=== PATIENT | male | born 1960 | race Caucasian/White ===

== ENCOUNTER 2025-04-30 10:13 | Emergency (ER) | payer OTHER ==
[2025-04-30] MEDS ORDERED: HYDROCODONE/APAP 5/325 MG TAB ONE (11:40)
--- NOTE | 2025-04-30 11:59 | ER ---
Nurse's Notes [facility] Name: Yordan Rodriguez Age: 64 yrs Sex: Male : 1960 Arrival Date: 04/30/2025 Time: 10:13 Bed 16 Private MD: Diagnosis: Periprosthetic fracture left femur subtrochanteric Presentation: 04/30 10:36 Chief complaint: Patient states: Patient presents in the ED via EMS after a fall from os bed and hitting the left hip. Patient denies hitting head, LOC, positive for blood thinners. Coronavirus screen: Vaccine status: Client denies travel out of the [place] in the last 14 days. Ebola Screen: Patient denies exposure to infectious person. Patient denies travel to an Ebola-affected area in the 21 days before illness onset. No symptoms or risks identified at this time. Initial Sepsis Screen: Does the patient meet any 2 criteria? No. Patient's initial sepsis screen is negative. Does the patient have a suspected source of infection? No. Patient's initial sepsis screen is negative. Risk Assessment: Do you want to hurt yourself or someone else? Patient reports no desire to harm self or others. Risk Assessment: Do you want to hurt yourself or someone else? Patient reports no desire to harm self or others. Onset of symptoms was April 30, 2025. 10:36 Method Of Arrival: EMS: [facility] os 10:36 Acuity: STEVE 3 os Triage Assessment: 10:40 General: Appears uncomfortable, well groomed, well developed, Behavior is calm, os cooperative, appropriate for age. Pain: Complains of pain in left iliac crest and left hip Pain currently is 6 out of 10 on a pain scale. Neuro: No deficits noted. Cardiovascular: No deficits noted. Respiratory: No deficits noted. Musculoskeletal: Reports Pain is 6 out of 10 on a pain scale. Historical: - Allergies: 10:39 PENICILLINS; os - PMHx: 10:39 Cirrhosis; os - Immunization history:: Adult Immunizations up to date, . - Infectious Disease History:: Denies. - Social history:: Smoking status: Patient/guardian denies using tobacco. Screenin:30 [facility] ED Fall Risk Assessment (Adult) History of falling in the last 3 months, os including since admission Yes- single mechanical fall (1 pt) Confusion or Disorientation No (0 pts) Intoxicated or Sedated No (0 pts) Impaired Gait Yes (1 pt) Mobility Assist Device Used Yes (1 pt) Altered Elimination No (0 pt) Score/Fall Risk Level 3 or more points = High Risk Oriented to surroundings, Maintained a safe environment, Educated pt \T\ family on fall prevention, incl call for assistance when getting out of bed. Abuse screen: Denies threats or abuse. Denies injuries from another. Nutritional screening: No deficits noted. Tuberculosis screening: No symptoms or risk factors identified. Assessment: 14:22 Reassessment: Patient appears in no apparent distress at this time. No changes from os previously documented assessment. Vital Signs: 10:36 BP 136 / 72; Pulse 60; Resp 17; Temp 97.7; Pulse Ox 100% on R/A; Weight 106.59 kg; os 14:22 BP 166 / 92; Pulse 88; Resp 17; Temp 97.9(O); Pulse Ox 98% ; os ED Course: 10:35 Patient arrived in ED. eb 10:35 Yecenia Joseph MD is Attending Physician. sp3 10:39 Triage completed. os 11:44 XRAY Hip LEFT 2 view In Process Unspecified. EDMS 11:44 XRAY Knee LEFT 2 view In Process Unspecified. EDMS 12:53 Inserted saline lock: 18 gauge in left antecubital area, using aseptic technique. ts3 Flushed with 10 mL NS. 13:05 initiated a transfer with Jeremias from the [facility]. eb 13:12 Initial lab(s) drawn, by [employer] conservation laborer, sent to lab. ts3 13:20 connected the ortho airway traffic controller for [facility] with Dr. Joseph for patient transfer eb consultation. 13:37 connected the hospitalist airway traffic controller for [facility] with Dr. Joseph for patient eb transfer consultation. 14:04 administrative approval given by Jeremias Thompson/ patient has been accepted to [facility] room 1663/ Dr. Sahwn Pacheco has accepted the patient in transfer/ report to be called to [phone]. 14:31 No provider procedures requiring assistance completed. Patient did not have IV access os during this emergency room visit. 14:31 Arm band placed on right wrist. os 15:04 Patient has correct armband on for positive identification. Bed in low position. Call os light in reach. Side rails up X2. Provided Education on: Patient transferred to [facility] 381. Administered Medications: 11:42 Drug: HYDROcodone-acetaminophen PO 5 mg-325 mg 2 tabs PO once Route: PO; os 13:38 Drug: morphine IVP or IV 4 mg IVP once over 4 mins Route: IVP; Infused Over: 4 mins; os Site: left antecubital; 13:38 Drug: Ondansetron IVP 4 mg IVP once; over 2 minutes Route: IVP; Site: left antecubital; os Medication: 15:12 VIS not applicable for this client. os Outcome: 11:58 Discharge ordered by MD. bunch 12:31 ER care complete, transfer ordered by MD. bunch 15:01 Discharged to home ambulatory, os 15:01 Transferred by ground EMS to [facility] [place] 15:01 Condition: stable 15:13 Patient left the ED. os Signatures: Dispatcher [employer] EDMS Anita Davis Setul, MD MD sp3 Jatin Albarado, RN RN os Catalina Ford ts3
--- NOTE | 2025-04-30 11:59 | EDPHYS ---
Physician Documentation [facility] Name: Yordan Rodriguez Age: 64 yrs Sex: Male : 1960 Arrival Date: 04/30/2025 Time: 10:13 Bed 16 Private MD: ED Physician Yecenia Joseph HPI: 04/30 10:36 This 64 yrs old Male presents to ER via Unassigned with unknown complaint. sp3 10:51 64-year-old male with history of cirrhosis, on Eliquis who presents with mechanical sp3 fall out of his bed injuring his left hip and left knee both of which have had replacements. Replacements were greater than 5 years ago. Patient complains of left hip and left knee pain. ROS negative for medical prodrome prior to the fall.. Historical: - Allergies: 10:39 PENICILLINS; os - PMHx: 10:39 Cirrhosis; os - Immunization history:: Adult Immunizations up to date, . - Infectious Disease History:: Denies. - Social history:: Smoking status: Patient/guardian denies using tobacco. ROS: 10:49 Constitutional: Negative for fever, chills, and weight loss, Eyes: Negative for injury, sp3 pain, redness, and discharge, ENT: Negative for injury, pain, and discharge, Neck: Negative for injury, pain, and swelling, Cardiovascular: Negative for chest pain, palpitations, and edema, Respiratory: Negative for shortness of breath, cough, wheezing, and pleuritic chest pain, Abdomen/GI: Negative for abdominal pain, nausea, vomiting, diarrhea, and constipation, Back: Negative for injury and pain, Skin: Negative for injury, rash, and discoloration, Neuro: Negative for headache, weakness, numbness, tingling, and seizure, Psych: Negative for depression, anxiety, suicide ideation, homicidal ideation, and hallucinations, Allergy/Immunology: Negative for hives, rash, and allergies, Endocrine: Negative for neck swelling, polydipsia, polyuria, polyphagia, and marked weight changes, 10:49 All other systems are negative, Exam: 10:50 Constitutional: This is a well developed, well nourished patient who is awake, alert, sp3 and in no acute distress. Head/Face: Normocephalic, atraumatic. Eyes: Pupils equal round and reactive to light, extra-ocular motions intact. Lids and lashes normal. Conjunctiva and sclera are non-icteric and not injected. Cornea within normal limits. Periorbital areas with no swelling, redness, or edema. ENT: Nares patent. No nasal discharge, no septal abnormalities noted. External auditory canals are clear. Oropharynx with no redness, swelling, or masses, exudates, or evidence of obstruction, uvula midline. Mucous membranes moist. Neck: Trachea midline, no thyromegaly or masses palpated, and no cervical lymphadenopathy. Supple, full range of motion without nuchal rigidity, or vertebral point tenderness. No Meningismus. Chest/axilla: Normal chest wall appearance and motion. Nontender with no deformity. No lesions are appreciated. Cardiovascular: Regular rate and rhythm with a normal S1 and S2. No gallops, murmurs, or rubs. Normal PMI, no JVD. No pulse deficits. Respiratory: Lungs have equal breath sounds bilaterally, clear to auscultation and percussion. No rales, rhonchi or wheezes noted. No increased work of breathing, no retractions or nasal flaring. Abdomen/GI: Soft, non-tender, with normal bowel sounds. No distension or tympany. No guarding or rebound. No evidence of tenderness throughout. Skin: Warm, dry with normal turgor. Normal color with no rashes, no lesions, and no evidence of cellulitis. Neuro: Awake and alert, GCS 15, oriented to person, place, time, and situation. Cranial nerves II-XII grossly intact. Motor strength 5/5 in all extremities. Sensory grossly intact. Cerebellar exam normal. Normal gait. Psych: Awake, alert, with orientation to person, place and time. Behavior, mood, and affect are within normal limits. 10:50 Musculoskeletal/extremity: Patient with pain to palpation lateral left hip and lateral left knee. No dislocation clinically. Distal neurovascular exam is normal. Normal DP pulse noted. No drawer laxity on the knee.. Vital Signs: 10:36 BP 136 / 72; Pulse 60; Resp 17; Temp 97.7; Pulse Ox 100% on R/A; Weight 106.59 kg; os 14:22 BP 166 / 92; Pulse 88; Resp 17; Temp 97.9(O); Pulse Ox 98% ; os MDM: 10:35 Medical Screening Exam initiated sp3 10:52 Data reviewed: vital signs, nurses notes, radiologic studies. ED course: 64-year-old sp3 male with mechanical fall injuring left knee and left hip. We will obtain x-rays of both p.o. pain medication. I am not highly suspicious of dislocation or fracture.. 11:57 ED course: Radiology read of imaging demonstrates subtrochanteric fracture oblique in sp3 nature. We will consult with our orthopedist on whether to keep patient here or transfer.. 12:29 ED course: Discussed with Dr. Vora and symptom photo of x-ray. Due to 3 periprosthetic nature of the fracture, he [place] [facility]. We will initiate transfer to [facility] orthopedics.. 13:41 ED course: Discussed with orthopedics and internal medicine who accepted patient at 3 [facility].. 04/30 12:55 Order name: CBC with Diff; Complete Time: 13:37 sp3 04/30 12:55 Order name: CMP; Complete Time: 13:37 sp3 04/30 10:36 Order name: XRAY Hip LEFT 2 view; Complete Time: 12:13 sp3 04/30 10:36 Order name: XRAY Knee LEFT 2 view; Complete Time: 12:13 sp3 04/30 12:55 Order name: IV Saline Lock; Complete Time: 12:57 sp3 04/30 12:55 Order name: Labs collected and sent; Complete Time: 12:57 sp3 Administered Medications: 11:42 Drug: HYDROcodone-acetaminophen PO 5 mg-325 mg 2 tabs PO once Route: PO; os 13:38 Drug: morphine IVP or IV 4 mg IVP once over 4 mins Route: IVP; Infused Over: 4 mins; os Site: left antecubital; 13:38 Drug: Ondansetron IVP 4 mg IVP once; over 2 minutes Route: IVP; Site: left antecubital; os Disposition Summary: 04/30/25 12:31 Transfer Ordered Notes: Transfer Location: [facility] sp3 Reason: Higher level of care sp3 Condition: Stable(04/30/25 12:31) sp3 Problem: new sp3 Symptoms: are unchanged sp3 Accepting Physician: [facility](04/30/25 15:13) os Diagnosis - Periprosthetic fracture left femur subtrochanteric sp3 Discharge Instructions: - Discharge Summary Sheet iw Forms: - Family Work Release iw - Medication Reconciliation Form sp3 - SBAR form sp3 Signatures: Dispatcher [employer] EDMS Yecenia Joseph MD MD sp3 Jatin Albarado, RN RN os Corrections: (The following items were deleted from the chart) 10:36 10:36 Hip Left 2 View+RAD.RAD.BRZ ordered. EDMS EDMS 10:36 10:36 Knee Left 2 View+RAD.RAD.BRZ ordered. EDMS EDMS 12:16 11:58 Home sp3 sp3 12:16 11:58 Stable sp3 sp3 12:16 11:58 Left hip contusion, left knee contusion sp3 sp3 12:19 11:57 ED course: X-rays demonstrate no abnormality. All hardware in good shape. We will sp3 safely discharge patient home at this time.. sp3 15:13 12:31 [facility] orthopedics sp3 os
--- NOTE | 2025-04-30 12:09 | RAD REPORT ---
Exam:Hip Left 2 View HISTORY: Left hip pain FINDINGS: Left hip prosthesis in place. Mildly to moderately displaced oblique fracture subtrochanteric left femur extends 15 cm distally to involve the proximal femoral diaphysis. No dislocation
--- NOTE | 2025-04-30 12:11 | RAD REPORT ---
Exam:Knee Left 2 View HISTORY: Left knee pain FINDINGS: No fracture or dislocation seen Left knee prosthesis without evidence of loosening.
[2025-04-30 13:19] LABS: Absolute Lymphocytes (CBC) 0.6 K/uL (0.7-4.9); Hematocrit 41.3 % (39.6-49.0); Hemoglobin 13.4 g/dL (13.6-17.9); MCH 27.4 pg (27.0-35.0); MCHC 32.5 g/dL (32.0-36.0); MCV 84.5 fL (80-100); MPV 8.9 fL (7.6-11.3); Nucleated RBC Absolute Count 0.0 (0-0); Nucleated Red Blood Cells % 0.1 % (0-0); RBC Red Blood Cell Count 4.89 M/uL (4.33-5.43); White Blood Count 12.90 thou/uL (4.3-10.9)
[2025-04-30] MEDS ORDERED: ONDANSETRON 4 MG/2 ML VIAL ONE (13:32)
[2025-04-30] MEDS ORDERED: MORPHINE 4 MG/ML SYR ONE (13:32)
[2025-04-30 13:36] LABS: Potassium 3.8 mEq/L (3.5-5.1)
[2025-04-30 13:37] LABS: ALT/SGPT 27.0 U/L (16-61); AST/SGOT 21.0 U/L (15-37); Albumin 3.5 g/dL (3.4-5.0); Albumin/Globulin Ratio 1.2 (1.1-1.8); Alkaline Phosphatase 93.0 U/L (45-117); Anion Gap 8.8 mEq/L (5.0-15.0); BUN Blood Urea Nitrogen 14.0 mg/dL (7-18); Globulin 3.0 g/dL (2.3-3.5); Glucose Level 115.0 mg/dL (74-106)
[2025-04-30 16:06] VITALS: BP 166/92; TEMP 97.9; O2SAT 98
== END 2025-04-30 15:13 | disposition short-term general hospital (02) ==
LOC: ER 10:13
DX: S72.22XA Displaced subtrochanteric fracture of left femur, initial encounter for closed fracture (principal); M97.02XA Periprosthetic fracture around internal prosthetic left hip joint, initial encounter; W06.XXXA Fall from bed, initial encounter; Z96.642 Presence of left artificial hip joint; Z96.652 Presence of left artificial knee joint
CPT/HCPCS: 85025; 36415; 80053; 73502; 73560; 96375; 96374; 99285; J2405

== ENCOUNTER 2025-05-05 11:33 | Inpatient (IN) | payer OTHER ==
[2025-05-05 18:04] VITALS: BMI 30.2
[2025-05-05] MEDS ORDERED: ACETAMINOPHEN 325 MG TABLET PO PRN (18:09)
[2025-05-05 18:53] LABS: Urine Microscopic Reflex YN NO UMIC
[2025-05-05] MEDS: APIXABAN 5 MG TABLET PO SCH (21:08)
[2025-05-05] MEDS: MELATONIN 3 MG TABLET PO PRN (21:08)
[2025-05-05] MEDS: DOCUSATE NA/SENNA CONC 1 TAB PO PRN (21:09)
[2025-05-06 07:35] LABS: Absolute Lymphocytes (CBC) 0.7 K/uL (0.7-4.9); Hematocrit 22.2 % (39.6-49.0); Hemoglobin 7.5 g/dL (13.6-17.9); MCH 28.7 pg (27.0-35.0); MCHC 33.7 g/dL (32.0-36.0); MCV 85.2 fL (80-100); MPV 9.9 fL (7.6-11.3); Nucleated RBC Absolute Count 0.0 (0-0); Nucleated Red Blood Cells % 0.0 % (0-0); RBC Red Blood Cell Count 2.61 M/uL (4.33-5.43); White Blood Count 4.80 thou/uL (4.3-10.9)
[2025-05-06 07:54] LABS: Albumin 2.4 g/dL (3.4-5.0); Anion Gap 10.0 mEq/L (5.0-15.0); BUN Blood Urea Nitrogen 14.0 mg/dL (7-18); Glucose Level 111.0 mg/dL (74-106); Magnesium 1.7 mg/dL (1.6-2.4); Potassium 4.0 mEq/L (3.5-5.1); Prealbumin 6.4 mg/dL (20-40)
[2025-05-06] MEDS: GLUCOSAM/CHONDROI 500mg-400mg PO SCH (08:00)
[2025-05-06] MEDS: ZINC SULFATE 220 MG CAP PO SCH (08:00)
[2025-05-06] MEDS: MULTIVITAMIN TAB PO SCH (08:05)
[2025-05-06] MEDS: MAGNESIUM OXIDE 400 MG TAB PO SCH (08:05)
[2025-05-06] MEDS: POTASSIUM CL SA 10 MEQ TAB PO SCH (08:06)
[2025-05-06] MEDS: FUROSEMIDE 20 MG TABLET PO SCH (08:06)
[2025-05-06] MEDS: FERROUS SULFATE 325 MG TAB PO SCH (08:06)
[2025-05-06] MEDS: PANTOPRAZOLE 40MG TABLET PO SCH (08:06)
[2025-05-06] MEDS: TRAMADOL HCL 50 MG TAB PO PRN (08:08)
[2025-05-06 11:22] LABS: Differential Total Cells Count 100; Segmented Neutrophils 70 % (40-80)
[2025-05-06 11:24] LABS: Basophilic Stippling 2+; Blood Morphology Comment NOTED (NOT SEEN)
--- NOTE | 2025-05-06 13:45 | P.RH.PN ---
Estimated Length of Stay: 12 Expected Discharge Date: 05/18/25 Discharge Disposition Plan: Home Family Support: Yes Senior Living Goal: Mobility, Transfers, Self Care Vital Signs: Last Vital Signs Temp 98.2 F 05/06/25 07:07 Pulse 86 05/06/25 07:07 Resp 18 05/06/25 07:07 BP 118/55 L 05/06/25 07:07 Pulse Ox 97 05/06/25 07:07 Laboratory: Laboratory Last Values WBC 4.80 thou/uL (4.3-10.9) 05/06/25 07:00 RBC 2.61 M/uL (4.33-5.43) L 05/06/25 07:00 Hgb 7.5 g/dL (13.6-17.9) L 05/06/25 07:00 Hct 22.2 % (39.6-49.0) L 05/06/25 07:00 MCV 85.2 fL (80-100) 05/06/25 07:00 MCH 28.7 pg (27.0-35.0) 05/06/25 07:00 MCHC 33.7 g/dL (32.0-36.0) 05/06/25 07:00 RDW 16.3 % (12.1-15.2) H 05/06/25 07:00 Plt Count 79 thou/uL (152-406) L 05/06/25 07:00 MPV 9.9 fL (7.6-11.3) 05/06/25 07:00 Neutrophils % 65.8 % (41.7-73.7) 05/06/25 07:00 Lymphocytes % 15.4 % (15.3-44.8) 05/06/25 07:00 Monocytes % 16.6 % (3.3-12.3) H 05/06/25 07:00 Eosinophils % 1.6 % (0-4.4) 05/06/25 07:00 Basophils % 0.6 % (0-1.3) 05/06/25 07:00 Absolute Neutrophils 3.2 K/uL (1.8-8.0) 05/06/25 07:00 Segmented Neutrophils 70 % (40-80) 05/06/25 07:00 Absolute Lymphocytes 0.7 K/uL (0.7-4.9) 05/06/25 07:00 Lymphocytes 13 % (15-42) L 05/06/25 07:00 Monocytes 14 % (0-10) H 05/06/25 07:00 Absolute Monocytes 0.8 K/uL (0.1-1.3) 05/06/25 07:00 Eosinophils 2 % (0-3) 05/06/25 07:00 Absolute Eosinophils 0.1 K/uL (0-0.5) 05/06/25 07:00 Absolute Basophils 0.0 K/uL (0-0.5) 05/06/25 07:00 Promyelocytes 1 % (0-0) H 05/06/25 07:00 Platelet Estimate Adeq 05/06/25 07:00 Basophilic Stippling 2+ 05/06/25 07:00 Rouleaux Noted 05/06/25 07:00 Morphology Comment Noted (NOT SEEN) 05/06/25 07:00 Sodium 143 mEq/L (136-145) 05/06/25 07:00 Potassium 4.0 mEq/L (3.5-5.1) 05/06/25 07:00 Chloride 111 mEq/L (98-107) H 05/06/25 07:00 Carbon Dioxide 26 mEq/L (21-32) 05/06/25 07:00 Anion Gap 10.0 mEq/L (5.0-15.0) 05/06/25 07:00 BUN 14 mg/dL (7-18) 05/06/25 07:00 Creatinine 0.75 mg/dL (0.70-1.30) 05/06/25 07:00 Est GFR (CKD-EPI) 100 ml/min (=/>90) 05/06/25 07:00 Glucose 111 mg/dL (74-106) H 05/06/25 07:00 Calcium 7.8 mg/dL (8.5-10.1) L 05/06/25 07:00 Magnesium 1.7 mg/dL (1.6-2.4) 05/06/25 07:00 Albumin 2.4 g/dL (3.4-5.0) L 05/06/25 07:00 Prealbumin 6.4 mg/dL (20-40) L 05/06/25 07:00 Urine Color Yellow (Yellow) 05/05/25 18:30 Urine Clarity Clear (Clear) 05/05/25 18:30 Urine pH 7.0 (5.0-7.0) 05/05/25 18:30 Ur Specific [place] 1.024 (1.005-1.030) 05/05/25 18:30 Glucose (UA)(Auto) Negative (Negative) 05/05/25 18:30 Urine Ketones Negative (Negative) 05/05/25 18:30 Urine Blood Negative (Negative) 05/05/25 18: Urine Nitrite Negative (Negative) 05/05/25 18:30 Urine Bilirubin Negative (Negative) 05/05/25 18:30 Urine Urobilinogen 4+ (over) (Normal) H 05/05/25 18:30 Ur Leukocyte Esterase Negative Matthew/uL (Negative) 05/05/25 18: Urine Total Protein Negative (Negative) 05/05/25 18:30 Smear Scan Cancelled 05/06/25 07:00 Weight: 235 lb Physician Update: Labs reviewed and had moderate anemia Hgb 7.5, low calcium. Has orthostatic hypotension, 126/68 dropped 107/57 heart rate 110. Left periprosthetic fracture and surgical site site. Moderate left hip pain with decreased ranged of motion. He plans to live with his daughter after discharge. Max assist bed mobility, mod supine to sit. Min assist for taller surfaces. RW 325' without with min assist. Up and down 2 stairs with min assist. He had shoulder pain with stairs. Independent eating, min assist oral care, set up for upper body dressing. Min assist toilet transfers. Summary: Patient's care plan and fdc goals have been reviewed and revised as necessary. Please see the Rehabilitation Signature page for all necessary signatures.
[2025-05-06] MEDS: ALBUMIN HUMAN 25% 100 ML IV ONE (15:43)
[2025-05-06] MEDS: ENSURE MAX PROTEIN 330 ML LIQUID PO SCH (19:34)
[2025-05-06] MEDS: GABAPENTIN 100 MG CAP PO SCH (19:34)
[2025-05-06] MEDS: DOCUSATE NA/SENNA CONC 1 TAB PO PRN (19:40)
--- NOTE | 2025-05-07 02:25 | HP ---
Date of Admission: 05/05/2025 Time: 1 p.m. Chief Complaint: "I fell and broke my left hp." History Of Present Illness: Mr. Rodriguez is a 64-year-old patient, who has previously had a bilateral h ip replacement with knee replacement, who is doing well, independent at home, living with his family, who is very supportive, taking care of activities of daily living independently without any difficul ty. He could routinely play baseball with his grandson. He does have additionally history of atrial fibrillation, myalgias, and pacemaker placement in September 18, cirrhosis of the liver from a long h istory of heavy alcohol use. He did fall at home and again could fall. He had significant pain in t he left hip and imaging identified a left periprosthetic femur fracture. In hospital, he underwent a revision of left total hip arthroplasty with open reduction and internal fixation of the femur fract ure. Postoperatively, he had mild anemia and significantly low platelets requiring transfusion. His hemoglobin on the 04 of May was 7.5, and thrombocytopenia down to 73 at which point he received platelets. He does require ongoing monitoring for additional potential transfusion of red blood amita ls and platelets. Also, there is a history of hepatic stress following his hospitalization and requi res significant glucose monitoring. Postoperatively, he has been able to resume the Eliquis and to b e evaluated by therapy. However, he did have some orthostatic hypotension requiring IV fluids ____ tolerance. He was able to and began mobilization training. Functionally, requires m inimum assistance for bed mobility in addition to do passive transfer and ambulate about 7 feet with a rolling walker and moderate assistance. Did again have orthostatic hypotension. He is a touchdown weightbearing with a left lower extremity and has had 30% weightbearing per orthopedic surgeon. He does have some difficulty recalling all of his hip precautions. Given his medical history, which requires ongoing monitoring, weightbearing restrictions, orthostatic instability, decline in functional independence, he was found to be a good candidate for inpatient r ehabilitation. Rehabilitation inpatient is necessary, so that he can return to his prior level of fu nctioning and reduce risk during hospitalization. If he is to be discharged to [facility] home drive and potentially worsen and prolonged hospitalization. Past Medical History: As noted above. Past Surgical History: Right inguinal hernia addressed. He does have mild obesity with ascites and a retransplant evaluation for chronic liver disease, anemia, vitamin B12 deficiency, esophageal varic es, cirrhosis related to alcohol use. He had appendectomy, colonoscopy, herniorrhaphy, hernia repair in the inguinal region on the right side, left total knee replacement, right total hip arthroplasty, and fine-needle aspiration and ultrasound. Imaging: X-ray of the pelvis on 05/03 shows intraoperative study, where a right femoral arthroplasty was done. No unexpected findings. CT of the pelvis on 05/01, acute oblique fracture through the le ft proximal femur surrounding the left femoral component of a left hip arthroplasty. There is mild l ucency of the most proximal portion of the femoral component from an indeterminate cause. Allergies: PENICILLIN. Medications: Tylenol 650 mg every 4 hours as needed, Eliquis 5 mg twice daily, ferrous sulfate 325 m g daily, Lasix 20 mg daily, gabapentin 100 mg twice daily, glucosamine chondroitin 1 capsule daily, m agnesium oxide 400 mg daily, melatonin 3 mg at bedtime, Hemocyte Plus 1 tablet daily, Centrum Silver 1 tablet daily, Protonix 40 mg daily, potassium 10 mEq 2 daily, Ensure Max Protein 237 mL twice daily , 2 twice daily, Ultram 50 mg every 6 hours, and zinc sulfate 220 mg daily. Laboratory Studies: White blood cell count 4.8, hemoglobin 7.5, platelets 79. Sodium 143, potassium 4.0, chloride 111, carbon dioxide 26, BUN 14, creatinine 0.75, glucose 111, calcium 7.8, magnesium 1 .7, albumin 2.4, prealbumin 6.4. He will receive 25 g of albumin. Urinalysis shows 4+ urine urobili nogen, but is otherwise unremarkable. Family History: Noncontributory. Social History: Stopping alcohol about 10 years ago. Prior to that, drank heavily. No new drug use or ongoing tobacco use. Review of Systems: He does report pain around 5 to 6/10 in the left hip. Otherwise, some pain in his back, which perhap s is more, but little pain in the right hip and bilateral knees. Physical Examination: HEENT: Otherwise, he is normocephalic, atraumatic. Sclerae anicteric. Oropharynx is moist, pink. Neck: Supple. Chest: Clear. Heart: Regular. Extremities: No significant edema, cyanosis, or clubbing. Vital Signs: In terms of his vital signs, blood pressure 118/55, pulse 86, respiratory rate 16, temp erature 98.2, oxygen saturation 97%, and weight 235 pounds. Height 6 feet 2 inches. BMI 30.2. General: He is resting comfortably. Slight pain. Neuro: He is again with no focal neurological deficits. Current Level Of Functioning: Currently eating is independent, grooming supervision, bathing maximum assistance, upper body dressing moderate assistance, lower body dressing maximal assistance. Toilet ing, moderate assistance. Transferring from bed, chair, wheelchair moderate assistance. Toilet jean sfer moderate assistance with ambulation 7 feet at a moderate assistance level, wheelchair 10 feet at moderate assistance level. Rehab And Medical Assessment And Plan: Mr. Rodriguez is a 64-year-old patient with rehabilitation impair ment category 07, fracture of the lower extremity. His impairment group code is 08.11 unilateral hip fracture. Etiologic diagnosis, left periprosthetic femur fracture. His comorbid conditions; atrial fibrillation, on chronic anticoagulation, chronic liver disease, cirrhosis related to alcohol use, m arked anemia, and thrombocytopenia. Episodes of hyper and hypotension, chronic anemia, moderate pain in the left hip, mild constipation. His plan will be to have physical and occupational therapy 3 ho urs a day, 5 of 7 days. He will continue with his medications as noted, Eliquis for DVT prophylaxis, ferrous sulfate, Hemocyte Plus for his iron deficiency, glucosamine chondroitin for arthritic joint pain, magnesium oxide for muscle spasms, melatonin for insomnia, Protonix for GE reflux, potassium re placement on board, Ensure Max Protein for large protein malnutrition. He is also receiving albumin 25 g. Will have Senokot for constipation, tramadol for pain, zinc sulfate to help with immune functi on. Comorbid Conditions That Are Impacting His Rehabilitation: He does have significant thrombocytopenia and anemia and likely related to cirrhosis of the liver from alcohol use. He has pain medications, will include gabapentin 100 mg twice daily, and the use of narcotics and Tylenol related medications will be minimized. His protein level again addressed by adding albumin to his regimen along with the high protein supplements. His risk of bleeding is significant and he may require a transfusion as h is hemoglobin is currently 7 and platelets are low. However, those will be checked and the hemoglobi n approaches closer to 7 and received 1 unit of red blood cells. Rehab Specific Plan: Mr. Rodriguez will have physical and occupational therapy 3 hours a day, 5 of 7 day s to improve his ability to transfer from the bed to a chair, to a wheelchair, to rolling walker with toileting to shower and dress upper and lower body, donning and doffing footwear. vision therapist apy will help with his activities of daily living and if need be, Speech will help with safety awaren ess and communication processing and being able to maintain his touchdown weightbearing precautions w ith the left lower extremity. Mr. Rodriguez has a good understanding of the process of admission to the inpatient rehabilitation unit a nd how he will benefit from physical and occupational therapy. He will have 24 hours a day, 7 days a week skilled rehabilitation nursing, daily physician evaluation and management, and social science research assistant evaluation and management for discharge planning, home equipment, and to continue therapy after his d ischarge. If need be, the Hospitalist Service will be consulted. Prior to discharge and the possibility of bleeding given low platelets and hemoglobin and hematocrit, may have been extended stay, those have to be monitored on a daily basis. He does have a significan t risk of falling and injury, fall precautions related to it at all times. If there is any potential finding of falling that may extend the stay, he may have to go to a [facility]ci for an extended period. The goal is for him to return home and he has family support. Length Of Stay: About 14 days. Disposition: Expected to be home with family and continue therapy via Home Health. Prognosis: Good. Code Status: Full code. Rehab Specific Goals: 1. To become independent with upper and lower body dressing and donning and doffing footwear. 2. Independently mobilize a wheelchair 250 feet, a rolling walker 250 feet, and go up and down 10 dayton ps with bilateral hand rails. 3. Perform all cognitive functioning and safety awareness communication with independence. 4. Maintain his touchdown weightbearing status as he transfers and mobilizes as all activities of alfredito ly living. The above goals were reviewed with Mr. Rodriguez and he is in agreement. By signing this document, I acknowledge I have personally performed a full physical examination on Mr Tara Rodriguez no later than 24 hours after his admission to the inpatient rehabilitation unit and determine d that he is able to tolerate the above course of treatment at an intensive level for a reasonable pe riod of time. A detailed individualized plan of care for him will be completed by hospital day 4 bas ed on the preadmission screen, history and physical, and therapy evaluations. CLARICE Voice ID: [id number]
[2025-05-07] MEDS: FE SULF/FA/VIT B COMP & C TAB PO SCH (07:41)
[2025-05-09] MEDS: MIDODRINE HCL 5 MG TABLET PO SCH (10:45)
[2025-05-09] MEDS: GABAPENTIN 300 MG CAP PO SCH (19:52)
[2025-05-09] MEDS: TRAZODONE 50 MG TABLET PO PRN (22:07)
--- NOTE | 2025-05-09 22:51 | PN ---
Date of Progress Note: 05/09/2025 Time: 1:15 p.m. Subjective: Mr. Rodriguez is resting in bed between therapy sessions. Still complains that his lower ba ck pain is more than the pain in the left hip where he had a periprosthetic hip fracture there. He d oes have multiple modalities addressing the pain. He has pain patch on board, tramadol on board, and has gabapentin now increased with 300 mg twice daily from 100 mg twice daily. Review of Systems: As noted, back pain that moderate to severe. Does have episodes of hypotension, addressed with midod rine; some issues of sleep, bowel movements as well that is mildly problematic. Physical Examination: Vital Signs: Blood pressure 134/63, pulse 78, respiratory rate 18, temperature 97.6, oxygen saturati on 99%. General: Mr. Rodriguez is resting comfortably in bed, although in mild distress from pain. HEENT: He is normocephalic, atraumatic. Sclerae anicteric. Oropharynx pink and moist. Neck: Supple. Extremities: Left hip periprosthetic fracture site has good hemostasis. Laboratory Studies: No new laboratory studies. X-ray/imaging: No new x-rays or imaging. Medications: He has Eliquis 5 mg twice daily for DVT prophylaxis and stroke risk reduction, ferrous sulfate 325 mg daily, Lasix 20 mg daily, gabapentin 300 mg daily, glucosamine chondroitin capsule alfredito ly, magnesium oxide 400 mg daily, melatonin 3 mg at bedtime, midodrine 5 mg in the morning, Hemocyte Plus 1 tablet with breakfast, Centrum Silver 1 tablet daily, Protonix 40 mg daily, potassium 20 mEq d aily, Ensure Max Protein 237 mL twice daily, Senokot S 2 at bedtime, tramadol 50 mg every 6 hours as needed, trazodone 50 mg at bedtime, zinc sulfate 220 mg daily. Progress Made With Physical And Occupational Therapy: With physical therapy today, multiple sit-to-s tand transfers done with contact guard assistance, stand pivot transfers also with contact guard assi stance. Mobilized wheelchair 125 feet and 150 feet with standby assistance. With his occupational t herapy, he did wjmwrs-de-hie transfers with a leg raiser and litters with supervision. Propelled a w heelchair, to gym, to room with steady pace with supervision. Did knee extension exercises and flexi on exercises. He did ambulate a total of 200 feet with contact guard standby assistance using a roll ing walker. Did have some episodes of shortness of breath. Assessment And Plan: Mr. Rodriguez is a 64-year-old patient in rehabilitation unit with left periprosthe tic fracture. He has decreased mobility, decreased physical function, but is doing very well with th at regard. Protein malnutrition; significant back pain, which has been an issue impacting his rehabi litation. Multiple medication modalities were used to address that. He has Eliquis for stroke and deep venous thrombosis risk reduction given atrial fibrillation with rapid ventricular response. Marisa n will be to continue with physical and occupational therapy 3 hours a day, and his comorbid conditio n medications, which have been noted. NEMESIO/MODL Voice ID: [id number] Report ID: [id number]
--- NOTE | 2025-05-10 21:32 | PN ---
Date of Progress Note: 05/10/2025 Time: 1:15. Subjective: Mr. Rodriguez is doing well and mobilizing around the unit, feeling better about his progres s on the left periprosthetic fracture. Does have some lower back pain and has been addressed with mu ltiple modalities. Objective: Some back pain, some mild pain in the left lower extremity fracture sites, but it is not very significant. Physical Examination: Vital Signs: Blood pressure 100/64, pulse 94, respiratory rate 16, temperature 98.0, oxygen saturati on 97%. General: Mr. Rodriguez is resting comfortably in therapy, doing well. He is in no acute distress. HEENT: He is normocephalic, atraumatic. Sclerae anicteric. Oropharynx moist. Neck: Supple. Heart: Regular. Extremities: No edema or cyanosis. Laboratory Studies: No new laboratory studies. X-ray/imaging: No new x-rays or imaging. Medications: Have been reviewed and are unchanged. Progress Made With Physical And Occupational Therapy: With physical therapy today, he did perform robison pine-to-sit transfers with contact guard assistance with verbal cues, arq-tg-dexni transfers with sta ndby assistance, multiple apskt-oo-hnypo transfers with standby assistance. He did ambulate with a r olling walker 175 feet twice, with 150 feet with contact guard assistance and on wheelchair was mobil ized 125 feet twice with independence. With occupational therapy, supervision for mjk-yo-[id number] trans fers and shower transfers as well, propelled a wheelchair to . Assessment And Plan: Mr. Rodriguez is a 64-year-old patient in the rehabilitation unit with left peripro sthetic fracture of which he is doing well. He does have still some back pain but is managing to do fairly okay with the back pain with adjustment of medications, which he actually had today, midodrine to help with pressor support and he has tramadol for pain in addition to gabapentin of 300 mg twice daily. In terms of his rest of his plan, we will continue with physical and occupational therapy 3 h ours a day, 5 of 7 days, and his list of medications which have been noted. LB/MODL Voice ID: [id number] Report ID: [id number]
[2025-05-11] MEDS: MIDODRINE HCL 5 MG TABLET PO SCH (09:18)
--- NOTE | 2025-05-11 22:38 | PN ---
Date of Progress Note: 05/11/2025 Time Of Service: 1:00 p.m. Subjective: Mr. Rodriguez is resting in bed in between therapy session. He is very happy with his thera py so far. He is able to sleep much better last night, said the pain pills worked and his left perip rosthetic hip fracture site does not pose significant difficulty. Review of Systems: No fevers, chills, nausea, vomiting. Again, back pain is better. Sleeping is better. Physical Examination: Vital Signs: Blood pressure 120/71, pulse 68, respiratory rate 18, temperature 99, oxygen saturation 97%. Weight 244 pounds, height 6 feet 2 inches, BMI 31.4. General: Mr. Rodriguez is resting well. Neuro: No focal neurologic deficits. Extremities: He does have good hemostasis of the left hip surgical site and no significant swelling, in the lower extremity and doing very well. Laboratory Studies: No new laboratory studies. X-ray/imaging: No new x-rays or imaging. Medications: Have been reviewed and are unchanged. He did have the midodrine added for blood pressu re issues, 5 mg in the morning and 5 mg around noon, doing well with that. He does have protein supp lementation, tramadol for pain, Desyrel for sleep. The potassium replacement on board, Protonix for GE reflux, and Hemocyte for the iron deficiency. Progress Made With Physical And Occupational Therapy: With physical therapy today, he was able to do ouyrjh-za-fqw transfers with standby assist and verbal cues, xmb-ph-ilqug transfers done independent ly. He was able to mobilize a rolling walker 125 feet twice and 300 feet once with standby assistanc e. With his occupational therapy, supervision for jbkwao-nh-uia transfers and he was educated on how to stand, urinate with assistive device and he says he also ambulated from room to gym with a alicia g walker independently, used grab bars as well independently. He is doing very well, making great pr ogress with physical and occupational therapy. Assessment And Plan: Mr. Rodriguez is a 64-year-old patient in rehabilitation unit with left periprosthe tic hip fracture, status post surgical repair. He did have constipation, issues of sleep that has im proved. He does have comorbids, decreased mobility and decreased physical functioning, which are imp roving. Orthostatic hypotension, addressed with midodrine. Insomnia has improved. He has glucosami ne, chondroitin that is very helpful. Gabapentin for neuropathic pain, Lasix for fluid management, f errous sulfate for iron deficiency, Eliquis 5 mg twice daily for stroke and deep venous thrombosis ri sk reduction given his atrial fibrillation. All of those were continued. Plan will be for him to be able to discharge. Continue Home Health, physical therapy. Follow up with his orthopedic surgeon a s scheduled and he is well on track for that. NEMESIO/VENTURA Voice ID: [id number] Report ID: [id number]
[2025-05-12 06:25] LABS: Absolute Lymphocytes (CBC) 0.8 K/uL (0.7-4.9); Hematocrit 24.6 % (39.6-49.0); Hemoglobin 8.2 g/dL (13.6-17.9); MCH 29.4 pg (27.0-35.0); MCHC 33.2 g/dL (32.0-36.0); MCV 88.6 fL (80-100); MPV 9.6 fL (7.6-11.3); Nucleated RBC Absolute Count 0.0 (0-0); Nucleated Red Blood Cells % 0.2 % (0-0); RBC Red Blood Cell Count 2.77 M/uL (4.33-5.43); White Blood Count 5.20 thou/uL (4.3-10.9)
[2025-05-12 06:49] LABS: Albumin 2.6 g/dL (3.4-5.0); Anion Gap 6.9 mEq/L (5.0-15.0); BUN Blood Urea Nitrogen 14.0 mg/dL (7-18); Glucose Level 98.0 mg/dL (74-106); Magnesium 2.0 mg/dL (1.6-2.4); Potassium 3.9 mEq/L (3.5-5.1); Prealbumin 9.1 mg/dL (20-40)
--- NOTE | 2025-05-12 21:53 | PN ---
Date of Progress Note: 05/12/2025 Time: 1:10 p.m. Subjective: Mr. Rodriguez is resting in bed in between therapy sessions. He is very happy with therapy and progress, had good bowel movement. His lower back pain is improved and left hip surgical site is not significantly painful. He feels good so far about his progress. Physical Examination: Vital Signs: Blood pressure 127/60, pulse 80, respiratory rate 18, temperature 97, oxygen saturation 99%. General: Mr. Rodriguez again is resting comfortably. HEENT: He is normocephalic, atraumatic. Sclerae anicteric. Oropharynx pink and moist. Neck: Supple. Chest: Clear. Extremities: He does have good hemostasis of the left hip surgical site. Laboratory Studies: White blood cell count 5.2, hemoglobin 8.2, hematocrit is 24.6, platelets are 14 1. Sodium 143, potassium 3.9, chloride 114, carbon dioxide 26, BUN 14, creatinine 0.84. His prealbu min improved from 6.4 to 9.1. Albumin improved from 2.4 to 2.6, magnesium 2.0, calcium improved from 7.8 to 8.0. X-ray/imaging: No new x-rays or imaging. Medications: Have been reviewed and are unchanged as he is doing well. He does have at 8 o'clock in the morning, midodrine 5 mg for blood pressure support, otherwise unchanged medications. Progress Made With Physical And Occupational Therapy: With physical therapy today, he was able to pe rform nqdafr-wf-kwz transfers independently, multiple ldg-sn-vnypg transfers independently, stand-to- pivot transfers done independently. He ambulated 125 feet twice with a rolling walker and 350 feet w ith standby assistance. He was up and down 15 steps with bilateral handrails with supervision. With occupational therapy, independent with ambulation from room to gym with a rolling walker, self prope l a wheelchair to the gym, room, and also did so independently, engaged in 8 minutes and 30 seconds o n standing to improve his dynamic balance. Assessment And Plan: Mr. Rodriguez is a 64-year-old patient in rehabilitation unit with left periprosthe tic hip fracture that is improving well. He has much improved decreased mobility, decreased physical functioning. He still has hypokalemia that is addressed. He has protein malnutrition, it is addres sed, Hemocyte Plus for his anemia and midodrine for hypotension on the orthostatic changes, gabapenti n for neuropathic pain, Lasix is still on board to reduce his edema and reduce the risk of pneumonia. Anne present for DVT prophylaxis and stroke risk reduction given atrial fibrillation. His plan is continue with physical and occupational therapy 3 hours a day, 5 of 7 days, and list of medication s addressing his comorbid conditions are noted above and that will be continued after discharge later in the week. Continue therapy via Home Health. He will follow up with Orthopedic Surgery and [facility] as scheduled. NEMESIO/VENTURA Voice ID: [id number] Report ID: [id number]
[2025-05-13] MEDS: LIDOCAINE 4% PATCH TOP SCH (08:27)
--- NOTE | 2025-05-13 14:08 | P.RH.PN ---
Estimated Length of Stay: 11 Expected Discharge Date: 05/16/25 Discharge Disposition Plan: Home Family Support: Yes Fpc Goal: Mobility, Transfers, Self Care Vital Signs: Last Vital Signs Temp 98.1 F 05/13/25 07:30 Pulse 78 05/13/25 08:26 Resp 18 05/13/25 07:30 BP 111/57 L 05/13/25 08:26 Pulse Ox 96 05/13/25 07:30 Laboratory: Laboratory Last Values WBC 5.20 thou/uL (4.3-10.9) 05/12/25 05:29 RBC 2.77 M/uL (4.33-5.43) L 05/12/25 05:29 Hgb 8.2 g/dL (13.6-17.9) L 05/12/25 05:29 Hct 24.6 % (39.6-49.0) L 05/12/25 05:29 MCV 88.6 fL (80-100) 05/12/25 05:29 MCH 29.4 pg (27.0-35.0) 05/12/25 05:29 MCHC 33.2 g/dL (32.0-36.0) 05/12/25 05:29 RDW 18.4 % (12.1-15.2) H 05/12/25 05:29 Plt Count 141 thou/uL (152-406) L 05/12/25 05:29 MPV 9.6 fL (7.6-11.3) 05/12/25 05:29 Neutrophils % 63.5 % (41.7-73.7) 05/12/25 05:29 Lymphocytes % 16.2 % (15.3-44.8) 05/12/25 05:29 Monocytes % 14.9 % (3.3-12.3) H 05/12/25 05:29 Eosinophils % 4.4 % (0-4.4) 05/12/25 05:29 Basophils % 1.0 % (0-1.3) 05/12/25 05:29 Absolute Neutrophils 3.3 K/uL (1.8-8.0) 05/12/25 05:29 Segmented Neutrophils 70 % (40-80) 05/06/25 07:00 Absolute Lymphocytes 0.8 K/uL (0.7-4.9) 05/12/25 05:29 Lymphocytes 13 % (15-42) L 05/06/25 07:00 Monocytes 14 % (0-10) H 05/06/25 07:00 Absolute Monocytes 0.8 K/uL (0.1-1.3) 05/12/25 05:29 Eosinophils 2 % (0-3) 05/06/25 07:00 Absolute Eosinophils 0.2 K/uL (0-0.5) 05/12/25 05:29 Absolute Basophils 0.1 K/uL (0-0.5) 05/12/25 05:29 Promyelocytes 1 % (0-0) H 05/06/25 07:00 Platelet Estimate Adeq 05/06/25 07:00 Basophilic Stippling 2+ 05/06/25 07:00 Rouleaux Noted 05/06/25 07:00 Morphology Comment Noted (NOT SEEN) 05/06/25 07:00 Sodium 143 mEq/L (136-145) 05/12/25 05:29 Potassium 3.9 mEq/L (3.5-5.1) 05/12/25 05:29 Chloride 114 mEq/L (98-107) H 05/12/25 05:29 Carbon Dioxide 26 mEq/L (21-32) 05/12/25 05:29 Anion Gap 6.9 mEq/L (5.0-15.0) 05/12/25 05:29 BUN 14 mg/dL (7-18) 05/12/25 05:29 Creatinine 0.84 mg/dL (0.70-1.30) 05/12/25 05:29 Est GFR (CKD-EPI) 97 ml/min (=/>90) 05/12/25 05:29 Glucose 98 mg/dL (74-106) 05/12/25 05:29 Calcium 8.0 mg/dL (8.5-10.1) L 05/12/25 05:29 Magnesium 2.0 mg/dL (1.6-2.4) 05/12/25 05:29 Albumin 2.6 g/dL (3.4-5.0) L 05/12/25 05:29 Prealbumin 9.1 mg/dL (20-40) L 05/12/25 05:29 Urine Color Yellow (Yellow) 05/05/25 18:30 Urine Clarity Clear (Clear) 05/05/25 18:30 Urine pH 7.0 (5.0-7.0) 05/05/25 18:30 Ur Specific [place] 1.024 (1.005-1.030) 05/05/25 18:30 Glucose (UA)(Auto) Negative (Negative) 05/05/25 18:30 Urine Ketones Negative (Negative) 05/05/25 18:30 Urine Blood Negative (Negative) 05/05/25 18: Urine Nitrite Negative (Negative) 05/05/25 18:30 Urine Bilirubin Negative (Negative) 05/05/25 18:30 Urine Urobilinogen 4+ (over) (Normal) H 05/05/25 18:30 Ur Leukocyte Esterase Negative Matthew/uL (Negative) 05/05/25 18: Urine Total Protein Negative (Negative) 05/05/25 18:30 Smear Scan Cancelled 05/06/25 07:00 Weight: 244 lb 6.4 oz Wound Present: No Closed Surgical Incision Present: Yes Negative Pressure Wound Therapy Present: No Physician Update: Labs reviewed and are stable except low prealbumin. Pain is managed. Plan to go home in AM with [facility]. / LTG 6 STG, RW 350' with SBA, 15 stairs with supervision. WC 250' independently. Met all OT goals. Independent with all basic self care. He needs a leg strap sewer. Summary: Patient's care plan and intermediate goals have been reviewed and revised as necessary. Please see the Rehabilitation Signature page for all necessary signatures.
[2025-05-14 07:20] VITALS: BP 112/65; TEMP 98.2
== END 2025-05-14 10:19 | disposition home health service (06) | DRG 560 ==
LOC: 5TH 17:54
PROVIDERS: ADMIT Psychiatry & Neurology Neurology with Special Qualifications in Child Neurology; ATTEND Psychiatry & Neurology Neurology with Special Qualifications in Child Neurology
DX: S72.92XD Unspecified fracture of left femur, subsequent encounter for closed fracture with routine healing (principal); E46 Unspecified protein-calorie malnutrition; M97.02XD Periprosthetic fracture around internal prosthetic left hip joint, subsequent encounter; M79.605 Pain in left leg; M54.50 Low back pain, unspecified; M25.552 Pain in left hip; M25.551 Pain in right hip; M25.562 Pain in left knee; M25.561 Pain in right knee; M25.519 Pain in unspecified shoulder; M62.838 Other muscle spasm; D69.6 Thrombocytopenia, unspecified; I48.91 Unspecified atrial fibrillation; I95.1 Orthostatic hypotension; E61.1 Iron deficiency; K59.00 Constipation, unspecified; G47.00 Insomnia, unspecified; E87.6 Hypokalemia; D64.9 Anemia, unspecified; K21.9 Gastro-esophageal reflux disease without esophagitis; E53.8 Deficiency of other specified B group vitamins; K70.31 Alcoholic cirrhosis of liver with ascites; E66.9 Obesity, unspecified; Z96.643 Presence of artificial hip joint, bilateral; Z96.652 Presence of left artificial knee joint; Z95.0 Presence of cardiac pacemaker; Z79.01 Long term (current) use of anticoagulants; Z68.30 Body mass index [BMI] 30.0-30.9, adult
CPT/HCPCS: 36415; 80048; 81003; 82040; 83735; 84134; 85025; 97110; 97116; 97124; 97163; 97165; 97530; 97542; J2003; P9047